=== PATIENT | female | born 1970 | race Caucasian/White ===

== ENCOUNTER 2018-01-10 21:12 | Observation (INO) | payer BC ==
[2018-01-11] MEDS ORDERED: Orphenadrine 100 MG Tab.ER PO STA (00:26)
--- NOTE | 2018-01-11 00:31 | EDM.PDOC ---
ED HPI GENERAL MEDICAL PROBLEM - General Chief Complaint: Back Pain or Injury Stated Complaint: BACK PAIN Time Seen by Provider: 01/10/18 22:10 Source of Information: Reports: Patient, Old Records (ED 01/08/2018) History Limitations: Reports: No Limitations - History of Present Illness INITIAL COMMENTS - FREE TEXT/NARRATIVE: The patient states that she developed low back pain on Thursday morning, 2017. Initially it was just in the lower back, but has since started radiating up her back to between her scapulae and down to her buttocks. Occasionally her feet are tingling, but she denies radicular pain down either lower extremity. No weakness to either lower extremity. She reports that she has been constipated for about a week, but denies incontinence of bowel or bladder. No recent fever. No urinary symptoms. The patient also reports lower abdominal pain. She states that she was seen at the [facility] on , 2017. She states that no tests were done, but that she was prescribed Skelaxin. The patient states that she was then seen in this ED on 01/08/2018. Medical records indicate that the patient underwent x-rays of lumbar spine, which demonstrated mild degenerative changes. She was given 1 mg of IM Dilaudid , and discharged home with a prescription for oxycodone 5 mg po up to QID as needed for severe pain, #15. She was instructed to continue the Skelaxin that had been prescribed to her the day before, and naproxen which she is already prescribed for migraine headaches. She was told that she could also take Tylenol. The patient states that she was then seen at the [facility] ED the following night, 01/09/2018. She states that no tests were done, but that she was given a steroid injection and a Toradol injection, then discharged home with a prescription for Valium. The patient now returns to the ED stating that none of these treatments have helped. The patient's PCP is Chiara Ellison. Back Pain Score (Numeric/FACES): 10 - Related Data Allergies Allergy/AdvReac Type Severity Reaction Status Date / Time morphine AdvReac Hallucinati Verified 01/08/18 03:12 ons Home Meds: Home Meds Naproxen [EC-Naprosyn] 500 mg PO BID PRN 10/14/13 [History] Topiramate [Topamax] 50 mg PO DAILY 03/11/16 [History] Cyclobenzaprine HCl 10 mg PO BEDTIME 01/08/18 [History] SUMAtriptan Succinate [Imitrex] 50 mg PO DAILY PRN 01/08/18 [History] Sertraline [Zoloft] 50 mg PO DAILY 01/08/18 [History] oxyCODONE 5 mg PO QID PRN #15 tab 01/08/18 [Rx] Diazepam [Valium] 10 mg PO Q8H PRN 01/10/18 [History] Docusate Sodium [Colace] 100 mg PO DAILY 01/10/18 [History] oxyCODONE 5 mg PO QID PRN 01/10/18 [History] 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: Neurological History: Reports: Migraines Psychiatric History: Reports: Anxiety, Depression - Infectious Disease History Infectious Disease History: Reports: Chicken Pox - Past Surgical History HEENT Surgical History: Reports: LASIK (bilateral) Female Surgical History: Reports: Section (x 2) Social & Family History - Tobacco Use Smoking Status *Q: Never Smoker - Caffeine Use Caffeine Use: Reports: Coffee, Soda - Alcohol Use Alcohol Use History: Yes Alcohol Use Frequency: Socially - Recreational Drug Use Recreational Drug Use: No - Living Situation & Occupation Living situation: Reports: , with Spouse, with Family (2 kids) 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 ED EXAM,LOWER BACK PAIN/INJURY - Physical Exam Exam: See Below Exam Limited By: No Limitations General Appearance: Alert, WD/WN, Mild Distress (Appears uncomfortable) Eye Exam: Bilateral Eye: EOMI, Normal Inspection Ears: Normal External Exam, Hearing Grossly Normal Nose: Normal Inspection, No Blood Throat/Mouth: Normal Inspection, Normal Lips, Normal Voice, No Airway Compromise Head: Atraumatic, Normocephalic Neck: Normal Inspection, Full Range of Motion Respiratory/Chest: No Respiratory Distress, Lungs Clear, Normal Breath Sounds, No Accessory Muscle Use Cardiovascular: Normal Peripheral Pulses, Regular Rate, Rhythm, No Edema, No Gallop, No JVD, No Murmur, No Rub GI/Abdominal: Normal Bowel Sounds, Soft, No Organomegaly, No Distention, No Abnormal Bruit, No Mass, Tender (Family to the lower abdomen. Minimal tenderness to the upper abdomen.) (Female) Exam: Deferred Rectal (Female) Exam: Deferred Back Exam: Normal Inspection, Full Range of Motion, CVA Tenderness (R), Vertebral Tenderness (thoracic and sacral, not lumbar), Other (Straight leg raise on the left induces back spasm without radiculopathy around 45. Straight leg raise on the left induces back spasm without radiculopathy at 60. The patient is able to flex his spine to approximately 45, and extend the spine to approximately 20. She is able to tilt of the spine bilaterally to about 20. She is able to twist the spine to the right to about 20, to the left to about 10. Unilateral knee bend is normal bilaterally.). No: CVA Tenderness (L), Paraspinal Tenderness Extremities: Normal Inspection, Normal Range of Motion, No Pedal Edema, Normal Capillary Refill Neurological: Alert, No Motor/Sensory Deficits, Oriented x 3 Psychiatric: Normal Affect Skin Exam: Warm, Dry, Intact, Normal Color, No Rash Course - Vital Signs Last Recorded V/S: Last Vital Signs Temp 37.2 C 01/10/18 21:50 Pulse 97 01/10/18 21:50 Resp 20 01/10/18 21:50 BP 126/73 01/10/18 21:50 Pulse Ox 99 01/10/18 21:50 - Orders/Labs/Meds Orders: Active Orders 24 hr Category Date Time Status Lumbar Spine w Cont [CT] Stat Exams 01/10/18 22:59 Taken Sodium Chloride 0.9% [Normal Saline] 1,000 ml Med 01/11/18 01:15 Active IV ASDIRECTED Medication Orders Sodium Chloride (Normal Saline) 1,000 mls @ 150 mls/hr IV ASDIRECTED ESSENCE Last Admin: 01/11/18 01:11 Dose: 150 mls/hr Labs: Laboratory Tests 01/10/18 01/10/18 01/11/18 Range/Units 23:26 23:26 01:00 WBC 8.36 (3.98-10.04) K/mm3 RBC 4.59 (3.98-5.22) M/mm3 Hgb 14.2 (11.2-15.7) gm/L Hct 41.8 (34.1-44.9) % MCV 91.1 (79.4-94.8) fl MCH 30.9 (25.6-32.2) pg MCHC 34.0 (32.2-35.5) g/dl RDW Std Deviation 42.5 (36.4-46.3) fL Plt Count 152 L (182-369) K/mm3 MPV 11.7 (9.4-12.3) fl Neutrophils % (Manual) 92 H (40-60) % Band Neutrophils % 1 (0-10) % Lymphocytes % (Manual) 3 L (20-40) % Atypical Lymphs % 1 % Monocytes % (Manual) 3 (2-10) % Eosinophils % (Manual) 0 L (0.7-5.8) % Basophils % (Manual) 0 L (0.1-1.2) Platelet Estimate Adequate Plt Morphology Comment Normal RBC Morph Comment Normal Sodium 141 (136-145) mEq/L Potassium 3.1 L (3.5-5.1) mEq/L Chloride 104 (98-107) mEq/L Carbon Dioxide 27 (21-32) mEq/L Anion Gap 13.1 (5-15) BUN 12 (7-18) mg/dL Creatinine 0.9 (0.55-1.02) mg/dL Est Cr Clr Drug Dosing 73.90 mL/min Estimated GFR (MDRD) > 60 (>60) mL/min BUN/Creatinine Ratio 13.3 L (14-18) Glucose 126 H (74-106) mg/dL Calcium 8.7 (8.5-10.1) mg/dL Total Bilirubin 2.5 H (0.2-1.0) mg/dL AST 393 H (15-37) U/L ALT 342 H (14-59) U/L Alkaline Phosphatase 534 H (46-116) U/L Total Protein 8.0 (6.4-8.2) g/dl Albumin 4.0 (3.4-5.0) g/dl Globulin 4.0 gm/dL Albumin/Globulin Ratio 1.0 (1-2) Urine Color Yellow (Yellow) Urine Appearance Clear (Clear) Urine pH 8.5 H (5.0-8.0) Ur Specific [place] 1.015 (1.005-1.030) Urine Protein 2+ H (Negative) Urine Glucose (UA) Negative (Negative) Urine Ketones Negative (Negative) Urine Occult Blood Trace-intact H (Negative) Urine Nitrite Negative (Negative) Urine Bilirubin 1+ H (Negative) Urine Urobilinogen 2.0 H (0.2-1.0) Ur Leukocyte Esterase Negative (Negative) Urine RBC 0-5 (0-5) /hpf Urine WBC 0-5 (0-5) /hpf Ur Epithelial Cells 0-5 (0-5) /hpf Urine Bacteria Rare (FEW) /hpf Urine Mucus Not seen (FEW) /hpf Meds: Medications Generic Name Dose Route Start Last Admin Trade Name Freq PRN Reason Stop Dose Admin Sodium Chloride 1,000 mls @ 150 mls/hr 01/11/18 01:15 01/11/18 01:11 Normal Saline IV 150 mls/hr ASDIRECTED ESSENCE Administration Discontinued Medications Generic Name Dose Route Start Last Admin Trade Name Freq PRN Reason Stop Dose Admin Hydromorphone HCl 1 mg 01/11/18 01:03 01/11/18 01:10 Dilaudid IVPUSH 01/11/18 01:04 1 mg ONETIME STA Administration Orphenadrine Citrate 100 mg 01/11/18 00:26 01/11/18 00:31 Norflex PO 01/11/18 00:27 100 mg ONETIME STA Administration Potassium Chloride 40 meq 01/11/18 00:32 01/11/18 01:14 Klor-Con M20 PO 01/11/18 00:33 40 meq ONETIME ONE Administration - Re-Assessments/Exams Free Text/Narrative Re-Assessment/Exam: 01/11/18 00:30 CT scan of the lumbar spine with IV contrast is read by [facility] as " No abscess." 01/11/18 01:55 Test results discussed with the patient and her family. The cause of the patient 's back pain has not yet been identified, although is most likely due to a muscle spasm. Her potassium returned at 3.1, for reasons unclear, and her transaminases and alkaline phosphatase are also substantially elevated. It is unclear if these are in summary related to her back pain, or are coincidental. The patient received Norflex and oral potassium along with IV fluid and IV Dilaudid here in the ED, nevertheless, she is still quite uncomfortable, and I don't feel comfortable sending her home. I'm concerned that we are missing something and that further evaluation, such as a MRI of the area, is needed. I' m recommending admission to the hospital, and the patient agreed. 01/11/18 02:[address] French at 01:55. She agrees to admit the patient. Departure - Departure Time of Disposition: 02:00 Disposition: Refer to Observation Condition: Fair Clinical Impression: Back pain, Hypokalemia, Elevated transaminase level, Elevated alkaline phosphatase level - Discharge Information *PRESCRIPTION DRUG MONITORING PROGRAM REVIEWED*: Yes *COPY OF PRESCRIPTION DRUG MONITORING REPORT IN PATIENT JAZMIN: No Referrals: Chiara Ellison ACCOUNT ASSOCIATE [Primary Care Provider] - Forms: ED Department Discharge - My Orders Last 24 Hours: My Active Orders 01/10/18 22:59 Lumbar Spine w Cont [CT] Stat 01/11/18 01:15 Sodium Chloride 0.9% [Normal Saline] 1,000 ml IV ASDIRECTED - Assessment/Plan Last 24 Hours: My Active Orders 01/10/18 22:59 Lumbar Spine w Cont [CT] Stat 01/11/18 01:15 Sodium Chloride 0.9% [Normal Saline] 1,000 ml IV ASDIRECTED
[2018-01-11] MEDS ORDERED: Potassium Chloride 20 MEQ Tab.ER PO ONE (00:32)
[2018-01-11] MEDS ORDERED: HYDROmorphone 0.5 MG/0.5 ML SYRINGE IVPUSH STA (01:03)
[2018-01-11] MEDS: Sodium Chloride 0.9% 1,000 ML IV SCH ×3 (01:11→17:55)
[2018-01-11] MEDS ORDERED: Ondansetron 4 MG/2 ML SDV IVPUSH PRN (03:19)
[2018-01-11] MEDS ORDERED: Temazepam 7.5 MG Cap PO PRN (03:23)
[2018-01-11] MEDS: traMADol 50 MG Tab PO PRN ×2 (03:25→16:23)
[2018-01-11] MEDS: Ketorolac 15 MG/ML SDV IVPUSH SCH ×2 (03:28→08:51)
[2018-01-11] MEDS: HYDROmorphone 0.5 MG/0.5 ML Syringe IVPUSH PRN ×2 (04:56→09:17)
[2018-01-11] MEDS ORDERED: HYDROmorphone 0.5 MG/0.5 ML SYRINGE IVPUSH ONE (06:06)
[2018-01-11] MEDS ORDERED: Pantoprazole 40 MG in Sodium Chloride 0.9% 100 ML IV ONE (06:12)
[2018-01-11] MEDS ORDERED: fentaNYL 25 MCG/HR Transdermal Patch TRDERM SCH (06:15)
[2018-01-11] MEDS ORDERED: methylPREDNISolone Sodium Succinate 125 MG/2 ML SDV IVPUSH ONE (06:20)
--- NOTE | 2018-01-11 09:48 | PCM.HP ---
H&P History of Present Illness - General Date of Service: 01/11/18 Admit Problem/Dx: Admission Diagnosis/Problem Admission Diagnosis/Problem Back pain Source of Information: Patient, Family, Provider History Limitations: Reports: No Limitations - History of Present Illness Initial Comments - Free Text/Narative: 47 YEAR OLD FEMALE WHO PRESENTED SEVERAL TIMES AT VARIOUS HEALTH CARE FACILITIES PRESENTS WITH ABRUPT ONSET OF BACK PAIN. SHE WILL BE ADMITTED FOR BACK PAIN WORK UP AND INTRACTABLE PAIN. THERE HAS BEEN NO RECENT TRAUMA, FEVER , CHILLS, CHANGE IN HABITS OR SIGNIFICANT ABDOMINAL PAIN. THE PAIN SHOTS DOWN HER LEGS AND OCCASIONALLY UP HER BACK. THE PATIENT WILL BE SCHEDULED FOR AN MRI AND RECEIVE AGGRESSIVE TREATMENT FOR BACK DISCOMFORT THAT HAS SEVERELY LIMITED HER ACTIVITIES. SHE WILL BE ADMITTED OBSERVATION, AND IS A FULL CODE. Onset of Symptoms: Reports: Sudden Symptom Onset Date: 01/06/18 Duration of Symptoms: Reports: Day(s):, Getting Worse Location: Reports: Back Quality: Reports: Same as Previous Episode Severity: Severe Improves with: Reports: Medication Worsens with: Reports: Movement Associated Symptoms: Reports: No Other Symptoms Back Pain Score (Numeric/FACES): 9 - Related Data Allergies/Adverse Reactions: Allergies Allergy/AdvReac Type Severity Reaction Status Date / Time morphine AdvReac Hallucinati Verified 01/08/18 03:12 ons Home Medications: Home Meds Topiramate [Topamax] 50 mg PO DAILY 03/11/16 [History] SUMAtriptan Succinate [Imitrex] 50 mg PO DAILY PRN 01/08/18 [History] Sertraline [Zoloft] 50 mg PO DAILY 01/08/18 [History] Docusate Sodium [Colace] 100 mg PO DAILY 01/10/18 [History] Ketorolac [Toradol] 10 mg PO Q6H PRN #12 tablet 01/12/18 [Rx] fentaNYL [Duragesic] 25 mcg TRDERM Q72H #1 patch 01/12/18 [Rx] predniSONE 20 mg PO DAILY #4 tablet 01/12/18 [Rx] traMADol [Ultram] 50 mg PO Q8H PRN #20 tablet 01/12/18 [Rx] 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: Musculoskeletal History: Reports: Other (See Below) Other Musculoskeletal History: back pain Neurological History: Reports: Migraines Psychiatric History: Reports: Anxiety, Depression Hematologic History: Reports: Iron Deficiency - Infectious Disease History Infectious Disease History: Reports: Chicken Pox - Past Surgical History HEENT Surgical History: Reports: LASIK (bilateral) Female Surgical History: Reports: Section (x 2) Social & Family History - Family History Family Medical History: Noncontributory - Tobacco Use Smoking Status *Q: Never Smoker Second Hand Smoke Exposure: No - Caffeine Use Caffeine Use: Reports: Coffee, Soda Other Caffeine Use: 2 cups/coffee, 1 soda - Recreational Drug Use Recreational Drug Use: No - Living Situation & Occupation Living situation: Reports: , with Spouse, with Family (2 kids) 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&P Review of Systems - Review of Systems: Review Of Systems: See Below General: Reports: Weakness, Decreased Appetite HEENT: Reports: No Symptoms Pulmonary: Reports: No Symptoms Cardiovascular: Reports: No Symptoms Gastrointestinal: Reports: No Symptoms Genitourinary: Reports: No Symptoms Musculoskeletal: Reports: Back Pain, Muscle Pain Skin: Reports: No Symptoms Psychiatric: Reports: No Symptoms Neurological: Reports: No Symptoms Hematologic/Lymphatic: Reports: No Symptoms Immunologic: Reports: No Symptoms Exam - Exam Exam: See Below - Vital Signs Vital Signs: Last Vital Signs Temp 37.3 C 01/11/18 08:54 Pulse 102 H 01/11/18 08:54 Resp 16 01/11/18 08:54 BP 118/65 01/11/18 08:54 Pulse Ox 96 01/11/18 08:54 Weight: 61.235 kg - Exam Quality Assessment: Supplemental Oxygen, DVT Prophylaxis General: Alert, Oriented, Cooperative, Mild Distress HEENT: Conjunctiva Clear, Nares Patent, Normal Nasal Septum, Pupils Equal, Pupils Reactive Neck: Trachea Midline Lungs: Clear to Auscultation, Normal Respiratory Effort Cardiovascular: Regular Rate, Regular Rhythm GI/Abdominal Exam: Normal Bowel Sounds, Soft, Non-Tender, No Distention (Female) Exam: Deferred Rectal (Female) Exam: Deferred Back Exam: Normal Inspection, Decreased Range of Motion, Muscle Spasm, Paraspinal Tenderness Extremities: Normal Inspection, No Pedal Edema, Limited Range of Motion (hips, bilaterally) Skin: Warm Neurological: Cranial Nerves Intact, Normal Speech Neuro Extensive - Mental Status: Alert, Oriented x3 Neuro Extensive - Motor, Sensory, Reflexes: CN II-XII Intact Psychiatric: Alert - Patient Data Lab Results Last 24 hrs: Laboratory Results - last 24 hr 01/10/18 01/10/18 01/11/18 Range/Units 23:26 23:26 01:00 WBC 8.36 (3.98-10.04) K/mm3 RBC 4.59 (3.98-5.22) M/mm3 Hgb 14.2 (11.2-15.7) gm/L Hct 41.8 (34.1-44.9) % MCV 91.1 (79.4-94.8) fl MCH 30.9 (25.6-32.2) pg MCHC 34.0 (32.2-35.5) g/dl RDW Std Deviation 42.5 (36.4-46.3) fL Plt Count 152 L (182-369) K/mm3 MPV 11.7 (9.4-12.3) fl Neutrophils % (Manual) 92 H (40-60) % Band Neutrophils % 1 (0-10) % Lymphocytes % (Manual) 3 L (20-40) % Atypical Lymphs % 1 % Monocytes % (Manual) 3 (2-10) % Eosinophils % (Manual) 0 L (0.7-5.8) % Basophils % (Manual) 0 L (0.1-1.2) Platelet Estimate Adequate Plt Morphology Comment Normal RBC Morph Comment Normal Sodium 141 (136-145) mEq/L Potassium 3.1 L (3.5-5.1) mEq/L Chloride 104 (98-107) mEq/L Carbon Dioxide 27 (21-32) mEq/L Anion Gap 13.1 (5-15) BUN 12 (7-18) mg/dL Creatinine 0.9 (0.55-1.02) mg/dL Est Cr Clr Drug Dosing 73.90 mL/min Estimated GFR (MDRD) > 60 (>60) mL/min BUN/Creatinine Ratio 13.3 L (14-18) Glucose 126 H (74-106) mg/dL Calcium 8.7 (8.5-10.1) mg/dL Total Bilirubin 2.5 H (0.2-1.0) mg/dL AST 393 H (15-37) U/L ALT 342 H (14-59) U/L Alkaline Phosphatase 534 H (46-116) U/L Total Protein 8.0 (6.4-8.2) g/dl Albumin 4.0 (3.4-5.0) g/dl Globulin 4.0 gm/dL Albumin/Globulin Ratio 1.0 (1-2) Urine Color Yellow (Yellow) Urine Appearance Clear (Clear) Urine pH 8.5 H (5.0-8.0) Ur Specific [place] 1.015 (1.005-1.030) Urine Protein 2+ H (Negative) Urine Glucose (UA) Negative (Negative) Urine Ketones Negative (Negative) Urine Occult Blood Trace-intact H (Negative) Urine Nitrite Negative (Negative) Urine Bilirubin 1+ H (Negative) Urine Urobilinogen 2.0 H (0.2-1.0) Ur Leukocyte Esterase Negative (Negative) Urine RBC 0-5 (0-5) /hpf Urine WBC 0-5 (0-5) /hpf Ur Epithelial Cells 0-5 (0-5) /hpf Urine Bacteria Rare (FEW) /hpf Urine Mucus Not seen (FEW) /hpf Result Diagrams: 01/10/18 23:26 01/11/18 18:15 Problem List Initiated/Reviewed/Updated: Yes Orders Last 24hrs: Active Orders 24 hr Category Date Time Status Admission Status [Patient Status] [ADT] Routine ADT 01/11/18 02:39 Active Full Liquid Diet [DIET] Diet 01/11/18 Breakfast Active Lumbar Spine w Cont [CT] Stat Exams 01/10/18 22:59 Taken HYDROmorphone [Dilaudid] Med 01/11/18 03:18 Active 0.5 mg IVPUSH Q4H PRN Ketorolac [Toradol] Med 01/11/18 03:30 Active 15 mg IVPUSH Q6H Ondansetron [Zofran] Med 01/11/18 03:19 Active 4 mg IVPUSH Q8H PRN Remove Patch Med 01/14/18 06:15 Active 1 ea TRDERM Q3D Sodium Chloride 0.9% [Normal Saline] 1,000 ml Med 01/11/18 01:15 Active IV ASDIRECTED Temazepam [Restoril] Med 01/11/18 03:23 Active 7.5 mg PO BEDTIME PRN fentaNYL [Duragesic] Med 01/11/18 06:15 Active 25 mcg TRDERM Q72H traMADol [Ultram] Med 01/11/18 03:17 Active 50 mg PO Q8H PRN K Pad [Heat Therapy] [OM.PC] Routine Oth 01/11/18 05:22 Ordered Resuscitation Status Routine Resus Stat 01/11/18 03:13 Ordered Medication Orders Fentanyl (Duragesic) 25 mcg TRDERM Q72H [facility] Last Admin: 01/11/18 06:20 Dose: 25 mcg Hydromorphone HCl (Dilaudid) 0.5 mg IVPUSH Q4H PRN PRN Reason: Pain Last Admin: 01/11/18 09:17 Dose: 0.5 mg Admin: 01/11/18 04:56 Dose: 0.5 mg Sodium Chloride (Normal Saline) 1,000 mls @ 150 mls/hr IV ASDIRECTED [facility] Last Admin: 01/11/18 01:11 Dose: 150 mls/hr Ketorolac Tromethamine (Toradol) 15 mg IVPUSH Q6H [facility] Last Admin: 01/11/18 08:51 Dose: 15 mg Admin: 01/11/18 03:28 Dose: 15 mg Miscellaneous Information (Remove Patch) 1 ea TRDERM Q3D [facility] Ondansetron HCl (Zofran) 4 mg IVPUSH Q8H PRN PRN Reason: Nausea Temazepam (Restoril) 7.5 mg PO BEDTIME PRN PRN Reason: Insomnia Tramadol HCl (Ultram) 50 mg PO Q8H PRN PRN Reason: Pain Last Admin: 01/11/18 03:25 Dose: 50 mg Assessment/Plan Comment:: Impression: Intractable back pain, severe muscle spasms Chronic Anxiety Depression Migraine Plan: IVF Home meds Daily Labs IV Steroids IV Narcotics IV NSAIDS Transdermal narcotic Consult PT/OT
[2018-01-11] MEDS ORDERED: oxyCODONE 5 MG Tab PO PRN (09:51)
[2018-01-11] MEDS ORDERED: Ketorolac 15 MG/ML SDV IVPUSH ONE (10:15)
[2018-01-11] MEDS: Enoxaparin 40 MG/0.4 ML Syringe SUBCUT SCH (10:40)
--- NOTE | 2018-01-11 10:49 | CT ---
CT lumbar spine Technique: Multiple axial sections were obtained from the top of T12 inferiorly to the L5-S1 disc. Reconstructed coronal and sagittal images were reviewed. Comparison: No prior CT lumbar spine study, previous lumbar spine plain film exam of 01/08/18 is available. Findings: Osteophytes are noted off the superior and inferior endplates at L3. Detached osteophyte compatible with incidental limbus type vertebra seen off the anterior superior endplate of L4. Minimal vacuum phenomena seen within the L4-L5 disc. No fracture is seen. No central canal stenosis or neural foraminal stenosis is seen. No focal fluid collections are seen to indicate abscess. Impression: 1. Slight degenerative change as noted above. 2. Nothing acute is appreciated. Diagnostic code #2 I agree with preliminary report issued by [facility] ([facility] report finalized on 01/11/18, 1:13 AM Central Time)
[2018-01-11] MEDS: methylPREDNISolone Sodium Succinate 125 MG/2 ML SDV IVPUSH SCH ×2 (12:46→19:37)
[2018-01-11] MEDS ORDERED: Gadobenate Dimeglumine 529 MG/ML 15 ML SDV IVPUSH ONE (15:14)
[2018-01-11] MEDS ORDERED: Sodium Chloride 0.9% 10 ML Syringe FLUSH SCH (15:15)
[2018-01-11] MEDS: Ketorolac 30 MG/ML SDV IVPUSH SCH ×2 (16:23→21:19)
--- NOTE | 2018-01-11 18:49 | MR ---
MRI lumbar spine Technique: MRI lumbar spine Technique: T1, T2 and T1 fat suppressed post gadolinium axial images were obtained from above the L1-2 disc inferiorly through the L5-S1 disc. T1, T2, fat suppressed inversion recovery and post gadolinium T1 fat suppressed sagittal images were obtained through the lumbar spine. Comparison: Previous CT lumbar spine study of 01/10/18. Findings: T11-T12: Posterior disc is preserved. No central canal stenosis or neural foraminal stenosis is seen. T12-L1: Posterior disc is preserved. No central canal stenosis or neural foraminal stenosis is seen. L1-2: Posterior disc is preserved. No central canal stenosis or neural foraminal stenosis is seen. L2-3: Slight disc space narrowing is noted. Posterior disc is preserved. Degenerative dehydration change is present. No central canal stenosis or neural foraminal stenosis is seen. L3-4: Mild posterior disc space narrowing is seen. Minimal circumferential disc bulge is present. Posterior disc maintains a slightly concave margin. Mild degenerative apophyseal change is noted. No central canal stenosis or neural foraminal stenosis is seen. Degenerative dehydration change is noted within the disc. L4-5: Minimal circumferential disc bulge is seen. Posterior disc maintains a minimally concave margin. No central canal stenosis is seen. Neural foramina are patent. Degenerative dehydration change is noted within the disc. L5-S1: Minimal circumferential disc bulge is seen. No central canal stenosis or neural foraminal stenosis is seen. Conus medullaris and cauda equina shows no abnormal signal or mass. No abnormal enhancement is seen. Impression: 1. Minimal degenerative change as noted above. No focal disc herniation, central canal stenosis or neural foraminal stenosis is seen. Diagnostic code #2
[2018-01-11] MEDS ORDERED: Famotidine 20 MG Tab PO SCH (21:00)
[2018-01-12] MEDS: methylPREDNISolone Sodium Succinate 125 MG/2 ML SDV IVPUSH SCH ×2 (00:46→06:42)
[2018-01-12] MEDS: Ketorolac 30 MG/ML SDV IVPUSH SCH ×2 (04:38→09:41)
[2018-01-12 04:45] VITALS: BP 131/76
[2018-01-12] MEDS ORDERED: Sertraline 50 MG Tab PO SCH (09:00)
[2018-01-12] MEDS ORDERED: Docusate Sodium 100 MG Cap PO SCH (09:00)
[2018-01-12] MEDS ORDERED: Topiramate 25 MG Tab PO SCH (09:00)
[2018-01-12] MEDS: Enoxaparin 40 MG/0.4 ML Syringe SUBCUT SCH (09:41)
[2018-01-12] MEDS ORDERED: Ketorolac 10 MG Tab PO PRN (11:03)
--- NOTE | 2018-01-12 11:03 | PCM.DCSUM1 ---
Discharge Summary - Hospital Course Free Text/Narrative:: The patient improved drastically with ATC toradol, a fentanyl patch and solumedrol. The patient also had a PT/OT consults, she will require additional therapy at [place]. She was continued on toradol, prednisone, tramadol, and a fentanyl patch. An MRI of the lumbar spine was performed which was unremarkable. She is expected to follow up with her PCP at [place]. HPI Initial Comments: 47 YEAR OLD FEMALE WHO PRESENTED SEVERAL TIMES AT VARIOUS HEALTH CARE FACILITIES PRESENTS WITH ABRUPT ONSET OF BACK PAIN. SHE WILL BE ADMITTED FOR BACK PAIN WORK UP AND INTRACTABLE PAIN. THERE HAS BEEN NO RECENT TRAUMA, FEVER , CHILLS, CHANGE IN HABITS OR SIGNIFICANT ABDOMINAL PAIN. THE PAIN SHOTS DOWN HER LEGS AND OCCASIONALLY UP HER BACK. THE PATIENT WILL BE SCHEDULED FOR AN MRI AND RECEIVE AGGRESSIVE TREATMENT FOR BACK DISCOMFORT THAT HAS SEVERELY LIMITED HER ACTIVITIES. SHE WILL BE ADMITTED OBSERVATION, AND IS A FULL CODE. Diagnosis: Stroke: No - Discharge Data Discharge Date: 01/12/18 Discharge Disposition: Home, Self-Care 01 Condition: Good - Patient Summary/Data Consults: Consultations 01/12/18 09:00 Consult to Occupational Therapy [OT Evaluation and Treatment] [CONS] Routine Consult to Physical Therapy [PT Evaluation and Treatment] [CONS] Routine - Patient Instructions Diet: Usual Diet as Tolerated Activity: As Tolerated Driving: Do Not Drive (until she is no longer on a fentanyl patch) Showering/Bathing: May Shower Notify Provider of: Fever, Increased Pain, Nausea and/or Vomiting - Discharge Plan *PRESCRIPTION DRUG MONITORING PROGRAM REVIEWED*: Yes *COPY OF PRESCRIPTION DRUG MONITORING REPORT IN PATIENT JAZMIN: No Prescriptions/Med Rec: fentaNYL [Duragesic] 25 mcg TRDERM Q72H #1 patch Ketorolac [Toradol] 10 mg PO Q6H PRN #12 tablet PRN Reason: Pain (Moderate 4-6) predniSONE 20 mg PO DAILY #4 tablet traMADol [Ultram] 50 mg PO Q8H PRN #20 tablet PRN Reason: Pain Home Medications: Home Meds Topiramate [Topamax] 50 mg PO DAILY 03/11/16 [History] SUMAtriptan Succinate [Imitrex] 50 mg PO DAILY PRN 01/08/18 [History] Sertraline [Zoloft] 50 mg PO DAILY 01/08/18 [History] Docusate Sodium [Colace] 100 mg PO DAILY 01/10/18 [History] Ketorolac [Toradol] 10 mg PO Q6H PRN #12 tablet 01/12/18 [Rx] fentaNYL [Duragesic] 25 mcg TRDERM Q72H #1 patch 01/12/18 [Rx] predniSONE 20 mg PO DAILY #4 tablet 01/12/18 [Rx] traMADol [Ultram] 50 mg PO Q8H PRN #20 tablet 01/12/18 [Rx] Other Amb Orders: COMPREHENSIVE METABOLIC PN,CMP [CHEM] Time Frame: 01/15/18, [facility], Location: [facility] Patient Handouts: Liver Function Tests, Back Pain, Adult, Acute Pain, Adult Referrals: Chiara Ellison NP [Primary Care Provider] - 01/19/18 11:00 am (Please follow-up with your primary care provider, Dr. Chiara Ellison, on ThursdayJanuary 19 at 11 :00am. ) - Discharge Summary/Plan Comment DC Time >30 min.: No Discharge Summary/Plan Comment: Impression: Intractable back pain, severe muscle spasms Chronic Anxiety Depression Migraine Plan: IVF Home meds Daily Labs IV Steroids IV Narcotics IV NSAIDS Transdermal narcotic Consult PT/OT - General Info Date of Service: 01/11/18 Functional Status: Reports: Pain Controlled, Tolerating Diet, Ambulating - Review of Systems General: Reports: No Symptoms HEENT: Reports: No Symptoms Pulmonary: Reports: No Symptoms Cardiovascular: Reports: No Symptoms Gastrointestinal: Reports: No Symptoms Genitourinary: Reports: No Symptoms Musculoskeletal: Reports: No Symptoms Skin: Reports: No Symptoms Neurological: Reports: No Symptoms Psychiatric: Reports: No Symptoms - Patient Data Vitals - Most Recent: Last Vital Signs Temp 36.5 C 01/12/18 04:42 Pulse 63 01/12/18 04:42 Resp 16 01/12/18 04:42 BP 131/76 01/12/18 04:42 Pulse Ox 92 L 01/12/18 04:42 Weight - Most Recent: 61.235 kg I&O - Last 24 hours: Intake & Output 01/11/18 01/12/18 01/12/18 22:59 06:59 14:59 Intake Total 2055 1700 Balance 2055 1700 Lab Results - Last 24 hrs: Laboratory Results - last 24 hr 01/11/18 Range/Units 18:15 Sodium 140 (136-145) mEq/L Potassium 3.7 (3.5-5.1) mEq/L Chloride 108 H (98-107) mEq/L Carbon Dioxide 20 L (21-32) mEq/L Anion Gap 15.7 H (5-15) BUN 7 (7-18) mg/dL Creatinine 0.9 (0.55-1.02) mg/dL Est Cr Clr Drug Dosing 73.90 mL/min Estimated GFR (MDRD) > 60 (>60) mL/min BUN/Creatinine Ratio 7.8 L (14-18) Glucose 225 H (74-106) mg/dL Calcium 7.9 L (8.5-10.1) mg/dL Med Orders - Current: Current Medications Docusate Sodium (Colace) 100 mg PO DAILY [facility] Last Admin: 01/12/18 09:41 Dose: 100 mg Enoxaparin Sodium (Lovenox) 40 mg SUBCUT Q24H [facility] Last Admin: 01/12/18 09:41 Dose: 40 mg Famotidine (Pepcid) 20 mg PO BEDTIME [facility] Last Admin: 01/11/18 21:19 Dose: 20 mg Fentanyl (Duragesic) 25 mcg TRDERM Q72H [facility] Last Admin: 01/11/18 06:20 Dose: 25 mcg Hydromorphone HCl (Dilaudid) 0.5 mg IVPUSH Q4H PRN PRN Reason: Pain Last Admin: 01/11/18 09:17 Dose: 0.5 mg Ketorolac Tromethamine (Toradol) 30 mg IVPUSH Q6H [facility] Last Admin: 01/12/18 09:41 Dose: 30 mg Methylprednisolone Sodium Succinate (Solu-Medrol) 125 mg IVPUSH Q6H [facility] Last Admin: 01/12/18 06:42 Dose: 125 mg Miscellaneous Information (Remove Patch) 1 ea TRDERM Q3D [facility] Ondansetron HCl (Zofran) 4 mg IVPUSH Q8H PRN PRN Reason: Nausea Oxycodone HCl (Oxycodone) 5 mg PO QID PRN PRN Reason: Pain (moderate 4-6) Last Admin: 01/11/18 12:19 Dose: 5 mg Sertraline HCl (Zoloft) 50 mg PO DAILY [facility] Last Admin: 01/12/18 09:40 Dose: 50 mg Temazepam (Restoril) 7.5 mg PO BEDTIME PRN PRN Reason: Insomnia Topiramate (Topamax) 50 mg PO DAILY [facility] Last Admin: 01/12/18 09:41 Dose: 50 mg Tramadol HCl (Ultram) 50 mg PO Q8H PRN PRN Reason: Pain Last Admin: 01/11/18 16:23 Dose: 50 mg Discontinued Medications Gadobenate Dimeglumine (Multihance) 12 ml IVPUSH ONETIME ONE Stop: 01/11/18 15:15 Last Admin: 01/11/18 15:59 Dose: 12 ml Hydromorphone HCl (Dilaudid) 1 mg IVPUSH ONETIME STA Stop: 01/11/18 01:04 Last Admin: 01/11/18 01:10 Dose: 1 mg Hydromorphone HCl (Dilaudid) 1 mg IVPUSH ONETIME ONE Stop: 01/11/18 06:07 Last Admin: 01/11/18 06:17 Dose: 1 mg Sodium Chloride (Normal Saline) 1,000 mls @ 150 mls/hr IV ASDIRECTED [facility] Last Admin: 01/11/18 17:55 Dose: 150 mls/hr Pantoprazole Sodium 40 mg/ (Sodium Chloride) 100 mls @ 200 mls/hr IV ONETIME ONE Stop: 01/11/18 06:41 Last Admin: 01/11/18 06:41 Dose: 200 mls/hr Ketorolac Tromethamine (Toradol) 15 mg IVPUSH Q6H [facility] Last Admin: 01/11/18 08:51 Dose: 15 mg Ketorolac Tromethamine (Toradol) 15 mg IVPUSH ONETIME ONE Stop: 01/11/18 10:16 Last Admin: 01/11/18 10:39 Dose: 15 mg Methylprednisolone Sodium Succinate (Solu-Medrol) 125 mg IVPUSH ONETIME ONE Stop: 01/11/18 06:21 Last Admin: 01/11/18 07:22 Dose: 125 mg Orphenadrine Citrate (Norflex) 100 mg PO ONETIME STA Stop: 01/11/18 00:27 Last Admin: 01/11/18 00:31 Dose: 100 mg Potassium Chloride (Klor-Con M20) 40 meq PO ONETIME ONE Stop: 01/11/18 00:33 Last Admin: 01/11/18 01:14 Dose: 40 meq Sodium Chloride (Saline Flush) 10 ml FLUSH ASDIRECTED [facility] Stop: 01/11/18 20:00 Last Admin: 01/11/18 15:59 Dose: 10 ml - Exam General: Reports: Alert, Oriented, Cooperative, No Acute Distress HEENT: Reports: Pupils Equal, Pupils Reactive, EOMI Neck: Reports: Trachea Midline, No JVD Lungs: Reports: Clear to Auscultation, Normal Respiratory Effort Cardiovascular: Reports: Regular Rate, Regular Rhythm GI/Abdominal Exam: Normal Bowel Sounds, Soft, Non-Tender, No Organomegaly, No Distention (Female) Exam: Deferred Rectal (Female) Exam: Deferred Back Exam: Reports: Normal Inspection Extremities: Normal Inspection, Normal Range of Motion, Non-Tender, No Pedal Edema, Normal Capillary Refill Skin: Reports: Warm Neurological: Reports: No New Focal Deficit, Normal Gait, Normal Speech Psy/Mental Status: Reports: Alert, Normal Affect, Normal Mood
[2018-01-12] MEDS ORDERED: predniSONE 20 MG Tab PO SCH (11:15)
== END 2018-01-12 12:53 | disposition home or self-care (01) ==
LOC: JD.ED 21:12 → JD.MS 01-11 02:38
PROVIDERS: ADMIT Internal Medicine Cardiovascular Disease; ATTEND Internal Medicine Cardiovascular Disease
DX: M51.26 Other intervertebral disc displacement, lumbar region (principal); M51.36 Other intervertebral disc degeneration, lumbar region; D50.9 Iron deficiency anemia, unspecified; F41.9 Anxiety disorder, unspecified; F32.9 Major depressive disorder, single episode, unspecified; Z79.899 Other long term (current) drug therapy; Z88.5 Allergy status to narcotic agent
CPT/HCPCS: 36415; 72132; 72158; 80048; 80053; 81001; 85007; 85027; 96361; 96365; 96372; 96375; 96376; 97161; 97165; 99285; A9270; A9577; C9113; G0378; J1170; J1650; J1885; J2930; J7030; J7040; J7050; 96374

== ENCOUNTER 2018-01-13 18:27 | Emergency (ER) | payer BC ==
[2018-01-13 18:46] VITALS: BP 158/81
[2018-01-13] MEDS ORDERED: HYDROmorphone 0.5 MG/0.5 ML SYRINGE IVPUSH ONE ×2 (19:10→22:24)
[2018-01-13] MEDS ORDERED: Sodium Chloride 0.9% 1,000 ML IV SCH (19:15)
[2018-01-13] MEDS: Sodium Chloride 0.9% 10 ML Syringe FLUSH PRN ×2 (19:31→21:05)
--- NOTE | 2018-01-13 19:44 | EDM.PDOC ---
ED HPI GENERAL MEDICAL PROBLEM - General Chief Complaint: Respiratory Problem Stated Complaint: LEG PAIN Time Seen by Provider: 01/13/18 18:55 Source of Information: Reports: Patient, Family History Limitations: Reports: No Limitations - History of Present Illness INITIAL COMMENTS - FREE TEXT/NARRATIVE: The patient presents with low back pain, shortness of breath, and left leg pain. When my nurse brought the patient back, her oxygen saturations were 70% and she was put on oxygen and that did bring it up into the 90s. This all started for her on 01/06/18. She woke up with low back pain. She had no injury and has no real history of back troubles. She exercises regularly. She went to the walk in clinic at [facility] in [place] and no studies were done but she was given skelaxin. She came to our ER on 01/08/18 and was seen by one of our ER doctors and an x-ray was done and it was relatively normal. She was given some oxycodone and told to continue the muscle relaxer. She was then seen at [facility] in [place] and no tests were done but she was given a steroid injection and toradol and given a prescription for valium. She was then seen at our ER again on 01/11/[address] scan of her back was done and it showed nothing acute. Her liver enzymes were also elevated. She was admitted to our hospitalist service and an MRI was done of her lumbar spine and it showed minimal degenerative changes. She was discharged home and PT was set up for a couple days. She was discharged on the and when she got home she developed shortness of breath and that has gotten progressively worse with tightness in her chest. She also has a cough and a fever when she arrived to the ER. She does have some pain to the outer left leg with no edema. She has no history of DVT or PE. She still has the back pain and it is also in her pelvis. She has no cardiac history. She does not smoke. She does have some abdominal bloating but no nausea or vomiting. She has no lung problems like asthma or COPD. Onset: Gradual Duration: Week(s): Location: Reports: Chest, Abdomen, Back, Lower Extremity, Left Quality: Reports: Sharp Severity: Severe Improves with: Reports: Immobilization Worsens with: Reports: Movement Associated Symptoms: Reports: Chest Pain, Cough, Fever/Chills, Nausea/Vomiting, Shortness of Breath. Denies: Headaches Left Lower Leg Pain Score (Numeric/FACES): 2 - Related Data Allergies Allergy/AdvReac Type Severity Reaction Status Date / Time morphine AdvReac Hallucinati Verified 01/13/18 18:46 ons Home Meds: Home Meds Topiramate [Topamax] 50 mg PO DAILY 03/11/16 [History] SUMAtriptan Succinate [Imitrex] 50 mg PO DAILY PRN 01/08/18 [History] Sertraline [Zoloft] 50 mg PO DAILY 01/08/18 [History] Docusate Sodium [Colace] 100 mg PO DAILY 01/10/18 [History] Ketorolac [Toradol] 10 mg PO Q6H PRN #12 tablet 01/12/18 [Rx] fentaNYL [Duragesic] 25 mcg TRDERM Q72H #1 patch 01/12/18 [Rx] predniSONE 20 mg PO DAILY #4 tablet 01/12/18 [Rx] traMADol [Ultram] 50 mg PO Q8H PRN #20 tablet 01/12/18 [Rx] Ferrous Sulfate [Iron] 1 tab PO DAILY 01/13/18 [History] 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: Musculoskeletal History: Reports: Other (See Below) Other Musculoskeletal History: back pain Neurological History: Reports: Migraines Psychiatric History: Reports: Anxiety, Depression Hematologic History: Reports: Iron Deficiency - Infectious Disease History Infectious Disease History: Reports: Chicken Pox - Past Surgical History HEENT Surgical History: Reports: LASIK Female Surgical History: Reports: Section Social & Family History - Family History Family Medical History: Noncontributory - Tobacco Use Smoking Status *Q: Never Smoker - Caffeine Use Caffeine Use: Reports: Coffee, Soda Other Caffeine Use: 2 cups/coffee, 1 soda - Recreational Drug Use Recreational Drug Use: No - Living Situation & Occupation Living situation: Reports: , with Spouse, with Family (2 kids) 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 Denies: Nausea, Vomiting Musculoskeletal: Reports: Other (Left leg pain) ED EXAM, GENERAL - Physical Exam Exam: See Below Exam Limited By: No Limitations General Appearance: Alert, No Apparent Distress Ears: Normal External Exam Nose: Normal Inspection Head: Atraumatic, Normocephalic Neck: Normal Inspection Respiratory/Chest: Respiratory Distress (mild), Decreased Breath Sounds Cardiovascular: No Edema, No Murmur, Tachycardia GI/Abdominal: Soft, Non-Tender, No Organomegaly, No Mass, Other (Mild bloating) Back Exam: Other (No pain upon palpation but her back does hurt when she had to move for my exam) Extremities: Other (Mild pain upon palpation to the left lateral lower leg but no visible edema) Neurological: Alert, Oriented, No Motor/Sensory Deficits EKG INTERPRETATION EKG Date: 01/13/18 Time: 18:56 Rhythm: Other (sinus tachycardia) Rate (Beats/Min): 101 [place]: Normal P-Wave: Present QRS: Normal ST-T: Normal QT: Normal Course - Vital Signs Last Recorded V/S: Last Vital Signs Temp 101.6 F H 01/13/18 21:23 Pulse 103 H 01/13/18 18:37 Resp 26 H 01/13/18 18:37 BP 158/81 H 01/13/18 18:37 Pulse Ox 70 L 01/13/18 18:37 - Orders/Labs/Meds Orders: Active Orders 24 hr Category Date Time Status Cardiac Monitoring [RC] . DIRECTED Care 01/13/18 19:04 Active EKG 12 Lead [EKG Documentation Completion] [RC] STAT Care 01/13/18 18:52 Active Peripheral IV Care [RC] . DIRECTED Care 01/13/18 19:06 Active RT Aerosol Therapy [RC] ASDIRECTED Care 01/13/18 19:46 Active Ang Abdomen Aorta w Bi Runoff [CT] Stat Exams 01/13/18 19:09 Taken Ang Chest [CT] Stat Exams 01/13/18 19:06 Taken VL Duplex Lwr Ext Veins Ltd Lt [US] Stat Exams 01/13/18 19:12 Taken Sodium Chloride 0.9% [Normal Saline] 1,000 ml Med 01/13/18 19:15 Active IV ASDIRECTED Sodium Chloride 0.9% [Saline Flush] Med 01/13/18 19:04 Active 10 ml FLUSH ASDIRECTED PRN Vancomycin [Vancocin] 1.5 gm Med 01/13/18 22:04 Active Sodium Chloride 0.9% [Normal Saline] 250 ml IV ONETIME BiPAP [RESPCARE] Routine Oth 01/13/18 21:26 Active Peripheral IV Insertion Adult [OM.PC] Stat Oth 01/13/18 19:04 Ordered Medication Orders Sodium Chloride (Normal Saline) 1,000 mls @ 125 mls/hr IV ASDIRECTED ESSENCE Last Admin: 01/13/18 19:48 Dose: 125 mls/hr Vancomycin HCl 1.5 gm/ Sodium (Chloride) 250 mls @ 250 mls/hr IV ONETIME ONE Stop: 01/13/18 23:03 Sodium Chloride (Saline Flush) 10 ml FLUSH ASDIRECTED PRN PRN Reason: Keep Vein Open Last Admin: 01/13/18 21:05 Dose: 10 ml Admin: 01/13/18 19:31 Dose: 10 ml Labs: Laboratory Tests 01/13/18 01/13/18 01/13/18 Range/Units 19:52 19:52 19:52 WBC 9.29 (3.98-10.04) K/mm3 RBC 3.40 L (3.98-5.22) M/mm3 Hgb 10.4 L (11.2-15.7) gm/L Hct 31.5 L (34.1-44.9) % MCV 92.6 (79.4-94.8) fl MCH 30.6 (25.6-32.2) pg MCHC 33.0 (32.2-35.5) g/dl RDW Std Deviation 44.0 (36.4-46.3) fL Plt Count 155 L (182-369) K/mm3 MPV 11.1 (9.4-12.3) fl Neut % (Auto) 76.6 H (34.0-71.1) % Lymph % (Auto) 12.2 L (19.3-51.7) % Kemper % (Auto) 9.9 (4.7-12.5) % Eos % (Auto) 0 L (0.7-5.8) Baso % (Auto) 0.1 (0.1-1.2) % Neut # (Auto) 7.12 H (1.56-6.13) K/mm3 Lymph # (Auto) 1.13 L (1.18-3.74) K/mm3 Kemper # (Auto) 0.92 H (0.24-0.36) K/mm3 Eos # (Auto) 0.00 L (0.04-0.36) K/mm3 Baso # (Auto) 0.01 (0.01-0.08) K/mm3 Manual Slide Review Normal smear PT 11.3 (9.5-12.1) SECONDS INR 1.04 APTT 29 (24-31) SECONDS D-Dimer, Quantitative 2.52 H (0.19-0.50) mg/L Puncture Site ABG pH (7.35-7.45) ABG pCO2 (35.0-45.0) mmHg ABG pO2 (80.0-100.0) mmHg ABG HCO3 (22.0-26.0) meq/L ABG O2 Saturation (96.0-97.0) % ABG Base Excess (-2-2.0) James Test A-a Gradient mmHg O2 Delivery Device Oxygen Flow Rate FiO2 (21.00-100.00) % Sodium 135 L (136-145) mEq/L Potassium 3.1 L (3.5-5.1) mEq/L Chloride 101 (98-107) mEq/L Carbon Dioxide 24 (21-32) mEq/L Anion Gap 13.1 (5-15) BUN 14 (7-18) mg/dL Creatinine 0.9 (0.55-1.02) mg/dL Est Cr Clr Drug Dosing 73.90 mL/min Estimated GFR (MDRD) > 60 (>60) mL/min BUN/Creatinine Ratio 15.6 (14-18) Glucose 116 H (74-106) mg/dL Lactic Acid (0.4-2.0) mmol/L Calcium 7.4 L (8.5-10.1) mg/dL Total Bilirubin 0.6 (0.2-1.0) mg/dL AST 278 H (15-37) U/L ALT 379 H (14-59) U/L Alkaline Phosphatase 352 H (46-116) U/L Troponin I 0.902 H* (0.00-0.056) ng/mL C-Reactive Protein 21.4 H* (<1.0) mg/dL NT-Pro-B Natriuret Pep (0-125) pg/mL Total Protein 6.0 L (6.4-8.2) g/dl Albumin 2.6 L (3.4-5.0) g/dl Globulin 3.4 gm/dL Albumin/Globulin Ratio 0.8 L (1-2) 01/13/18 01/13/18 01/13/18 Range/Units 19:52 20:14 20:15 WBC (3.98-10.04) K/mm3 RBC (3.98-5.22) M/mm3 Hgb (11.2-15.7) gm/L Hct (34.1-44.9) % MCV (79.4-94.8) fl MCH (25.6-32.2) pg MCHC (32.2-35.5) g/dl RDW Std Deviation (36.4-46.3) fL Plt Count (182-369) K/mm3 MPV (9.4-12.3) fl Neut % (Auto) (34.0-71.1) % Lymph % (Auto) (19.3-51.7) % Kemper % (Auto) (4.7-12.5) % Eos % (Auto) (0.7-5.8) Baso % (Auto) (0.1-1.2) % Neut # (Auto) (1.56-6.13) K/mm3 Lymph # (Auto) (1.18-3.74) K/mm3 Kemper # (Auto) (0.24-0.36) K/mm3 Eos # (Auto) (0.04-0.36) K/mm3 Baso # (Auto) (0.01-0.08) K/mm3 Manual Slide Review PT (9.5-12.1) SECONDS INR APTT (24-31) SECONDS D-Dimer, Quantitative (0.19-0.50) mg/L Puncture Site Rt radial ABG pH 7.46 H (7.35-7.45) ABG pCO2 30.3 L (35.0-45.0) mmHg ABG pO2 65.0 L (80.0-100.0) mmHg ABG HCO3 21.4 L (22.0-26.0) meq/L ABG O2 Saturation 90.8 L (96.0-97.0) % ABG Base Excess -1.3 (-2-2.0) James Test Positive A-a Gradient 128 mmHg O2 Delivery Device Nasal cannula Oxygen Flow Rate 4.0 FiO2 36.00 (21.00-100.00) % Sodium (136-145) mEq/L Potassium (3.5-5.1) mEq/L Chloride (98-107) mEq/L Carbon Dioxide (21-32) mEq/L Anion Gap (5-15) BUN (7-18) mg/dL Creatinine (0.55-1.02) mg/dL Est Cr Clr Drug Dosing mL/min Estimated GFR (MDRD) (>60) mL/min BUN/Creatinine Ratio (14-18) Glucose (74-106) mg/dL Lactic Acid 2.6 H (0.4-2.0) mmol/L Calcium (8.5-10.1) mg/dL Total Bilirubin (0.2-1.0) mg/dL AST (15-37) U/L ALT (14-59) U/L Alkaline Phosphatase (46-116) U/L Troponin I (0.00-0.056) ng/mL C-Reactive Protein (<1.0) mg/dL NT-Pro-B Natriuret Pep 3077 H (0-125) pg/mL Total Protein (6.4-8.2) g/dl Albumin (3.4-5.0) g/dl Globulin gm/dL Albumin/Globulin Ratio (1-2) Meds: Medications Generic Name Dose Route Start Last Admin Trade Name Jaseq PRN Reason Stop Dose Admin Sodium Chloride 1,000 mls @ 125 mls/hr 01/13/18 19:15 01/13/18 19:48 Normal Saline IV 125 mls/hr ASDIRECTED ESSENCE Administration Vancomycin HCl 1.5 gm/ Sodium 250 mls @ 250 mls/hr 01/13/18 22:04 Chloride IV 01/13/18 23:03 ONETIME ONE Sodium Chloride 10 ml 01/13/18 19:04 01/13/18 21:05 Saline Flush FLUSH 10 ml ASDIRECTED PRN Administration Keep Vein Open Discontinued Medications Generic Name Dose Route Start Last Admin Trade Name Freq PRN Reason Stop Dose Admin Albuterol/Ipratropium 3 ml 01/13/18 19:46 01/13/18 20:07 Duoneb 3.0-0.5 Mg/3 Ml NEB 01/13/18 19:47 3 ml ONETIME ONE Administration Hydromorphone HCl 0.5 mg 01/13/18 19:10 01/13/18 19:28 Dilaudid IVPUSH 01/13/18 19:11 0.5 mg ONETIME ONE Administration Hydromorphone HCl 0.5 mg 01/13/18 22:24 Dilaudid IVPUSH 01/13/18 22:25 ONETIME ONE Ceftriaxone Sodium 2 gm/ 100 mls @ 100 mls/hr 01/13/18 20:53 01/13/18 21:19 Sodium Chloride IV 01/13/18 21:52 100 mls/hr ONETIME ONE Administration Sodium Chloride 100 mls @ 4 mls/sec 01/13/18 21:03 01/13/18 21:05 Normal Saline IV 01/13/18 21:04 4 mls/sec ONETIME ONE Administration Iopamidol 100 ml 01/13/18 21:03 01/13/18 21:05 Isovue-370 (76%) IVPUSH 01/13/18 21:04 100 ml ONETIME ONE Administration Iopamidol 25 ml 01/13/18 21:03 01/13/18 21:05 Isovue-370 (76%) IVPUSH 01/13/18 21:04 25 ml ONETIME ONE Administration Ketorolac Tromethamine 30 mg 01/13/18 19:46 01/13/18 19:56 Toradol IVPUSH 01/13/18 19:47 30 mg ONETIME ONE Administration - Re-Assessments/Exams Free Text/Narrative Re-Assessment/Exam: 01/13/18 19:50 I ordered an IV NS at 125mL/hr, oxygen, ABG, dilaudid 0.5mg IV CT angio of her chest and abdomen with run off. I am worried about a clot in her lungs that may have come from her pelvis or abdomen. I also ordered tylenol, duoneb, labs and an EKG. 01/13/18 21:31 Her EKG shows a sinus tachycardia with no acute changes. Her WBC was normal. Her Hgb was a little low at 10.4. Her platelets were low at 155. Her D-dimer was elevated at 2.52. Her pH was elevated at 7.46. Her pCO2 is low at 30.3. Her pO2 is low at 65. Her lactic acid was elevated at 2.6. Her calcium was low at 7.4. Her Na is low at 135. Her K was low at 3.1. Her creatinine was normal at 0.9. Her AST was elevated at 278, ALT 379, and alk phos at 352. The CT of her chest shows small bilateral bordered pulmonary parenchymal nodules measure up to 7 mm i n the left upper lobe. Small patchy peripheral infiltrates in both upper lung zones many of which are associated with small peripheral airways suggesting parenchymal changes related to peripheral airway disease. No pulmonary emboli. No aneurysm or dissection. Moderate bilateral pleural effusions. The CT of her abdomen and pelvis with vascular run off shows free fluid in the cul-de-sac either physiologic or related to monimal ascites. Small amount of fluid surrounds the gallbladder. No gallbladder wall thickening or calculi. Normal CTA of the abdomen, pelvis and both legs. There is hepatomegaly. Her oxygen sats are about 88 to 89%. I tried her on some CPAP and that helped. Her troponin came back elevated at 0.902 and her BNP was elevated at 3077. Her CRP is elevated at 21.4. This patient is very sick she has hypoxia, pneumonia, pulmonary nodule, bilateral pleural effusions, nonSTEMI , CHF, sepsis, enlarged liver with elevated liver enzymes, fluid around her gallbladder and ovarian cyst. I am not sure how her back pain is associated with her respiratory problems and other problems. I did talk to the radiologist again and he could not see anything that would explain her pain other then a small cyst and some fluid in the cul-de-sac. She is having more pain so I ordered dilaudid 0.5mg IV. I talked with our hospitalist Dr French and she went to see the patient. There is many things going on with the patient and she would do better in [place]. I called [facility] in [place] and [facility] and both did not have beds. I called [facility] in [place] and talked with Dr Mason and he accepted the patient. She will be going by [facility] [place]. I did give her a shot of lovenox 60mg subcutaneous for the nonSTEMI. Departure - Departure Time of Disposition: 22:50 Disposition: DC/[facility]fer to [facility] 02 Clinical Impression: Hypoxia, Pulmonary nodule, Bilateral pleural effusion, Non-STEMI (non-ST elevated myocardial infarction), Hepatomegaly Sepsis Qualifiers: Sepsis type: sepsis due to unspecified organism Qualified Code(s): A41.9 - Sepsis, unspecified organism Pneumonia Qualifiers: Pneumonia type: due to unspecified organism Laterality: bilateral Lung location : lower lobe of lung Qualified Code(s): J18.1 - Lobar pneumonia, unspecified organism CHF (congestive heart failure) Qualifiers: Heart failure type: other Qualified Code(s): I50.9 - Heart failure, unspecified Ovarian cyst Qualifiers: Laterality: left Qualified Code(s): N83.202 - Unspecified ovarian cyst, left side Low back pain Qualifiers: Chronicity: acute Back pain laterality: bilateral Sciatica presence: with sciatica Sciatica laterality: bilateral sciatica Qualified Code(s): M54.42 - Lumbago with sciatica, left side - Discharge Information Referrals: Chiara Elliosn FARM MECHANIC APPRENTICE [Primary Care Provider] - Forms: ED Department Discharge - My Orders Last 24 Hours: My Active Orders 01/13/18 19:04 Cardiac Monitoring [RC] . DIRECTED Sodium Chloride 0.9% [Saline Flush] 10 ml FLUSH ASDIRECTED PRN Peripheral IV Insertion Adult [OM.PC] Stat 01/13/18 19:06 Peripheral IV Care [RC] . DIRECTED Ang Chest [CT] Stat 01/13/18 19:09 Ang Abdomen Aorta w Bi Runoff [CT] Stat 01/13/18 19:12 VL Duplex Lwr Ext Veins Ltd Lt [US] Stat 01/13/18 19:15 Sodium Chloride 0.9% [Normal Saline] 1,000 ml IV ASDIRECTED 01/13/18 19:46 RT Aerosol Therapy [RC] ASDIRECTED 01/13/18 21:26 BiPAP [RESPCARE] Routine 01/13/18 22:04 Vancomycin [Vancocin] 1.5 gm Sodium Chloride 0.9% [Normal Saline] 250 ml IV ONETIME - Assessment/Plan Last 24 Hours: My Active Orders 01/13/18 19:04 Cardiac Monitoring [RC] . DIRECTED Sodium Chloride 0.9% [Saline Flush] 10 ml FLUSH ASDIRECTED PRN Peripheral IV Insertion Adult [OM.PC] Stat 01/13/18 19:06 Peripheral IV Care [RC] . DIRECTED Ang Chest [CT] Stat 01/13/18 19:09 Ang Abdomen Aorta w Bi Runoff [CT] Stat 01/13/18 19:12 VL Duplex Lwr Ext Veins Ltd Lt [US] Stat 01/13/18 19:15 Sodium Chloride 0.9% [Normal Saline] 1,000 ml IV ASDIRECTED 01/13/18 19:46 RT Aerosol Therapy [RC] ASDIRECTED 01/13/18 21:26 BiPAP [RESPCARE] Routine 01/13/18 22:04 Vancomycin [Vancocin] 1.5 gm Sodium Chloride 0.9% [Normal Saline] 250 ml IV ONETIME
[2018-01-13] MEDS ORDERED: Albuterol/Ipratropium 3.0-0.5 MG/3 ML Neb Soln NEB ONE (19:46)
[2018-01-13] MEDS ORDERED: Ketorolac 30 MG/ML SDV IVPUSH ONE (19:46)
[2018-01-13] MEDS ORDERED: cefTRIAXone 2 GM in Sodium Chloride 0.9% 100 ML IV ONE (20:53)
[2018-01-13] MEDS ORDERED: Iopamidol 755 Mg/ML 100 ML Bottle IVPUSH ONE (21:03)
[2018-01-13] MEDS ORDERED: Sodium Chloride 0.9% 100 ML IV ONE (21:03)
[2018-01-13] MEDS ORDERED: Iopamidol 755 MG/ML 50 ML Bottle IVPUSH ONE (21:03)
[2018-01-13] MEDS ORDERED: Enoxaparin 60 MG/0.6 ML Syringe SUBCUT ONE (22:42)
--- NOTE | 2018-01-14 11:03 | CT ---
CT chest Technique: Multiple axial sections through the chest were obtained. Intravenous contrast was utilized. Study performed as a pulmonary angiogram protocol. Findings: Pulmonary arteries show no filling defects to indicate pulmonary embolism. Aorta appears within normal limits. Mediastinum and hilar regions show no adenopathy or mass. Small to moderate sized bilateral pleural effusions are seen. Areas of consolidation noted within both lung bases most likely representing atelectasis but difficult to exclude superimposed pneumonia. Several scattered pulmonary nodules noted within the right upper lung with largest nodule measuring 9 mm. Mild areas of increased density seen within both upper lungs possibly due to pulmonary vascular congestion or bronchitis. Impression: 1. Small to moderate sized bilateral pleural effusions. 2. Small nodules within the right upper lung with largest measuring 9 mm. Recommend noncontrast chest CT in 6 months to confirm stability. 3. Areas of atelectasis within both lungs. Difficult to exclude superimposed pneumonia if patient has infectious symptoms. Slight parenchymal density within both upper lungs most likely representing bronchitis or mild pulmonary vascular congestion. 4. No findings of pulmonary embolism. Diagnostic code #9 I agree with preliminary report issued by [facility] ([facility] report finalized on 01/13/18, 9:34 PM Central Time)
--- NOTE | 2018-01-14 11:03 | CT ---
CT aortic angiogram with runoff Technique: Multiple axial sections were obtained from above the dome of the diaphragm inferiorly through the abdomen and pelvis and through both lower extremities. Study performed as an angiogram protocol. Delayed images were then obtained through the abdomen and pelvis. Comparison: No previous abdominal or pelvic CT exam. Findings: Liver is slightly generous in size which is felt to be incidental. No focal abnormality is seen within the liver. Spleen appears within normal limits. Adrenal glands show no nodule. Pancreas is within normal limits. Kidneys show symmetric contrast enhancement. Aorta shows no aneurysm or stenosis. Single renal arteries are seen which show no stenosis. Superior mesenteric and celiac axis appears patent. Inferior mesenteric artery is patent. Common iliac arteries, external and internal iliac arteries are within normal limits. No retroperitoneal adenopathy or mesenteric abnormalities are seen. No pelvic mass or adenopathy is seen. There is free fluid being seen within the pelvis slightly more than physiologic. Small amount of fluid is also seen around the gallbladder. Bone window settings were reviewed which show mild degenerative change within the spine. Common femoral arteries, superficial femoral arteries and profunda arteries are patent on both sides. Popliteal arteries are patent on both sides. Three-vessel runoff identified on both sides. Impression: 1. Small amount of free fluid within the pelvis which is slightly more than physiologic but otherwise nonspecific. Small amount of fluid also noted around the gallbladder which is nonspecific. 2. Aorta and iliac arteries as well as lower extremity arteries show no occlusion or stenosis. Aortic branch vessels also show no stenosis or occlusion. 3. Liver is slightly prominent in size most likely incidental. Other normal findings as noted above. Diagnostic code #2 I agree with preliminary report issued by [employer] ([facility] report finalized on 01/13/18, 9:34 PM Central Time)
--- NOTE | 2018-01-14 11:03 | US ---
Left lower extremity deep venous ultrasound: Duplex and color flow imaging was obtained of the left common femoral, proximal greater saphenous, superficial femoral, popliteal, posterior tibial and peroneal veins. Right common femoral vein was also evaluated. Comparison: No prior venous imaging. Findings: Normal phasic flow, augmentation and compression are seen. Impression: 1. No evidence of deep venous thrombosis within the left lower extremity or within the right common femoral vein. Diagnostic code #1 I agree with preliminary report issued by [facility] ([facility] report finalized on 01/13/18, 10:41 PM Central Time)
== END 2018-01-13 23:10 ==
LOC: JD.ED 18:27
DX: A41.9 Sepsis, unspecified organism (principal); I21.4 Non-ST elevation (NSTEMI) myocardial infarction; J90 Pleural effusion, not elsewhere classified; R91.1 Solitary pulmonary nodule; R16.0 Hepatomegaly, not elsewhere classified; J18.9 Pneumonia, unspecified organism; I50.9 Heart failure, unspecified; N83.202 Unspecified ovarian cyst, left side; F41.9 Anxiety disorder, unspecified; F32.9 Major depressive disorder, single episode, unspecified; M54.42 Lumbago with sciatica, left side; Z88.5 Allergy status to narcotic agent; Z79.899 Other long term (current) drug therapy
CPT/HCPCS: 36415; 36600; 71275; 75635; 80053; 82803; 83605; 83880; 84484; 85025; 85379; 85610; 85730; 86140; 87040; 93005; 93971; 94640; 96361; 96365; 96367; 96372; 96375; 96376; 99285; J0696; J1170; J1650; J1885; J3370; J7030; J7040; J7050; Q9967; 87077; 87186; 93010; J7620-GY

== ENCOUNTER 2019-05-20 06:12 | Day surgery (SDC) | payer BC ==
[~2019-05-20 06:12] MED LIST: Lactated Ringers 1,000 ML IV SCH; Lidocaine 1%/Sod Bicarbonate in NS 8.4% 1 ML Syringe IDERM PRN; Sodium Chloride 0.9% 10 ML Syringe FLUSH PRN
[2019-05-20] MEDS ORDERED: Ketorolac 30 MG/ML SDV ONE (06:37)
[2019-05-20] MEDS ORDERED: ceFAZolin 1 GM Vial ONE (06:37)
[2019-05-20] MEDS ORDERED: Ondansetron 4 MG/2 ML SDV ONE (06:37)
[2019-05-20] MEDS ORDERED: Rocuronium 100 MG/10 ML MDV ONE (06:37)
[2019-05-20] MEDS ORDERED: Propofol 200 MG/20 ML SDV ONE (06:37)
[2019-05-20] MEDS ORDERED: Lidocaine 1% 6 ML ONE (06:37)
[2019-05-20] MEDS ORDERED: HYDROmorphone 0.5 MG/0.5 ML Syringe ONE (06:37)
[2019-05-20] MEDS ORDERED: Lactated Ringers 1,000 ML ONE ×2 (06:37→07:41)
[2019-05-20] MEDS ORDERED: Dexamethasone 4 MG/ML 5 ML MDV ONE (06:37)
[2019-05-20] MEDS ORDERED: Midazolam 1 MG/ML 2 ML SDV ONE (06:38)
[2019-05-20] MEDS ORDERED: fentaNYL 250 MCG/5 ML SDV ONE (06:39)
--- NOTE | 2019-05-20 06:56 | PCM.PREANE ---
Preanesthetic Assessment - Anesthesia/Transfusion/Family Hx Anesthesia History: Prior Anesthesia Without Reaction Family History of Anesthesia Reaction: No Transfusion History: No Prior Transfusion(s) Intubation History: Unknown - Review of Systems General: No Symptoms Pulmonary: No Symptoms (ETOH: occasionally) Cardiovascular: No Symptoms Gastrointestinal: No Symptoms Neurological: No Symptoms ( history of back pain-history of L5 vertebral infection ), Headache (Migraines: currently rated 2/10) Other: Reports: None, Depression - Physical Assessment NPO Status Date: 05/19/19 NPO Status Time: 20:00 Vital Signs: Last Vital Signs Temp 36.7 C 05/20/19 06:20 Pulse 72 05/20/19 06:20 Resp 16 05/20/19 06:20 BP 123/76 05/20/19 06:20 Pulse Ox 99 05/20/19 06:20 Height: 1.68 m Weight: 61.235 kg ASA Class: 2 Mental Status: Alert & Oriented x3 Airway Class: Mallampati = 2 Dentition: Reports: Normal Dentition, Caries Thyro-Mental Finger Breadths: 3 Mouth Opening Finger Breadths: 3 ROM/Head Extension: Full Lungs: Clear to Auscultation, Normal Respiratory Effort Cardiovascular: Regular Rate, Regular Rhythm, No Murmurs - Lab Values: Laboratory Last Values Urine HCG, Qual Negative (NEGATIVE) 05/20/19 06:21 All labs reviewed and noted and within acceptable ranges to proceed with procedure. - Imaging/EKG Impressions: EK Sinus tachycardia [id number] - Allergies Allergies/Adverse Reactions: Allergies Allergy/AdvReac Type Severity Reaction Status Date / Time morphine AdvReac Hallucinati Verified 05/19/19 15:51 ons - Anesthesia Plan Pre-Op Medication Ordered: None - Acknowledgements Anesthesia Type Planned: General Anesthesia Pt an Appropriate Candidate for the Planned Anesthesia: Yes Alternatives and Risks of Anesthesia Discussed w Pt/Guardian: Yes Pt/Guardian Understands and Agrees with Anesthesia Plan: Yes PreAnesthesia Questionnaire HEENT History: Reports: Impaired Vision, Otitis Media Other HEENT History: TMJ Cardiovascular History: Reports: None Respiratory History: Reports: None Gastrointestinal History: Reports: None Genitourinary History: Reports: None [employer] History: Reports: Other OB/BYN History: ovarian cyst, , female pelvic pain, breast cyst Musculoskeletal History: Reports: Back Pain, Chronic, Other (See Below) Other Musculoskeletal History: back pain, osteomyelitis, L5 verterbral infection Neurological History: Reports: Migraines Psychiatric History: Reports: Anxiety, Depression Endocrine/Metabolic History: Reports: None Hematologic History: Reports: Anemia, Iron Deficiency Immunologic History: Reports: None Oncologic (Cancer) History: Reports: None Dermatologic History: Reports: None - Infectious Disease History Infectious Disease History: Reports: Chicken Pox - Past Surgical History Head Surgeries/Procedures: Reports: None HEENT Surgical History: Reports: LASIK Cardiovascular Surgical History: Reports: None Respiratory Surgical History: Reports: None GI Surgical History: Reports: None Female Surgical History: Reports: Section, Cervical Cryotherapy Endocrine Surgical History: Reports: None Oncologic Surgical History: Reports: None Dermatological Surgical History: Reports: None - SUBSTANCE USE Smoking Status *Q: Never Smoker Recreational Drug Use History: No - HOME MEDS Home Medications: Home Meds SUMAtriptan Succinate [Imitrex] 50 mg PO DAILY PRN 01/08/18 [History] Sertraline [Zoloft] 50 mg PO DAILY 01/08/18 [History] Ferrous Sulfate [Iron] 1 tab PO DAILY 01/13/18 [History] Cholecalciferol (Vitamin D3) [Vitamin D3] 1,000 unit PO DAILY 05/19/19 [History] Magnesium 250 mg PO DAILY 05/19/19 [History] - CURRENT (IN HOUSE) MEDS Current Meds: Current Medications Lactated Ringer's (Ringers, Lactated) 1,000 mls @ 125 mls/hr IV ASDIRECTED ESSENCE Stop: 05/20/19 23:00 Lidocaine/Sodium Bicarbonate (Buffered Lidocaine 1% In Ns 8.4%) 0.25 ml IDERM ONETIME PRN PRN Reason: Prior to IV Start Stop: 05/20/19 18:00 Sodium Chloride (Saline Flush) 10 ml FLUSH ASDIRECTED PRN PRN Reason: Keep Vein Open Stop: 05/20/19 18:00 Discontinued Medications Cefazolin Sodium (Ancef) Confirm Administered Dose 2 gm .ROUTE .STK-MED ONE Stop: 05/20/19 06:38 Dexamethasone (Dexamethasone) Confirm Administered Dose 20 mg .ROUTE .STK-MED ONE Stop: 05/20/19 06:38 Fentanyl (Sublimaze) Confirm Administered Dose 250 mcg .ROUTE .STK-MED ONE Stop: 05/20/19 06:40 Hydromorphone HCl (Dilaudid) Confirm Administered Dose 0.5 mg .ROUTE .STK-MED ONE Stop: 05/20/19 06:38 Lidocaine HCl (Xylocaine-Mpf 1%) Confirm Administered Dose 6 mls @ as directed .ROUTE .STK-MED ONE Stop: 05/20/19 06:38 Lactated Ringer's (Ringers, Lactated) Confirm Administered Dose 1,000 mls @ as directed .ROUTE .STK-MED ONE Stop: 05/20/19 06:38 Ketorolac Tromethamine (Toradol) Confirm Administered Dose 30 mg .ROUTE .STK- MED ONE Stop: 05/20/19 06:38 Lidocaine/Epinephrine (Xylocaine 1% With Epinephrine 1:100,000) Confirm Administered Dose 20 ml .ROUTE .STK-MED ONE Stop: 05/20/19 06:44 Midazolam HCl (Versed 1 Mg/Ml) Confirm Administered Dose 2 mg .ROUTE .STK-MED ONE Stop: 05/20/19 06:39 Ondansetron HCl (Zofran) Confirm Administered Dose 4 mg .ROUTE .STK-MED ONE Stop: 05/20/19 06:38 Propofol (Diprivan 20 Ml) Confirm Administered Dose 200 mg .ROUTE .STK-MED ONE Stop: 05/20/19 06:38 Rocuronium [place] (Zemuron) Confirm Administered Dose 100 mg .ROUTE .STK-MED ONE Stop: 05/20/19 06:38 Sodium Chloride (Normal Saline) Confirm Administered Dose 50 ml .ROUTE .STK-MED ONE Stop: 05/20/19 06:44
[2019-05-20] MEDS: Sodium Chloride 0.9% 50 ML SDV ONE ×2 (07:48→07:55)
[2019-05-20] MEDS: Lidocaine 1% with EPINEPHrine 1:100,000 20 ML MDV ONE ×2 (07:48→07:54)
[2019-05-20] MEDS ORDERED: ePHEDrine 50 MG/ML SDV IVPUSH PRN (07:51)
[2019-05-20] MEDS ORDERED: Ondansetron 4 MG/2 ML SDV IVPUSH PRN ×3 (07:51→10:06)
[2019-05-20] MEDS ORDERED: fentaNYL 100 MCG/2 ML SDV IVPUSH PRN (07:51)
[2019-05-20] MEDS ORDERED: Haloperidol Lactate 5 MG/ML SDV IVPUSH ONE (07:51)
[2019-05-20] MEDS ORDERED: diphenhydrAMINE 50 MG/ML SDV IVPUSH PRN (07:51)
[2019-05-20] MEDS ORDERED: HYDROmorphone 0.5 MG/0.5 ML Syringe IVPUSH PRN (07:51)
[2019-05-20] MEDS ORDERED: Phenylephrine 1 MG in Sodium Chloride 0.9% 10 ML IV SCH (08:00)
[2019-05-20] MEDS ORDERED: Neostigmine Methylsulfate 1 MG/ML 5 ML Syringe ONE (08:13)
[2019-05-20] MEDS ORDERED: Acetaminophen/oxyCODONE 325-5 MG Tab PO PRN ×2 (08:50→10:06)
--- NOTE | 2019-05-20 08:55 | PCM.OPNOTE ---
- General Post-Op/Procedure Note Date of Surgery/Procedure: 05/20/19 Operative Procedure(s): Total vaginal hysterectomy with bilateral salpingectomy Findings: Ovaries appeared normal uterus was normal in appearance. The patient had some scarring on the right side of her uterus involving the ovary and fallopian tube. Pre Op Diagnosis: 1. Menorrhagia. 2. Dysmenorrhea Post-Op Diagnosis: Same Anesthesia Technique: General ET Tube Other Anesthesia Type: Lidocaine quarter percent with [id number] mLlocal Primary Surgeon: Richie Higgins Secondary Surgeon: Eloy Osman Anesthesia Provider: Violeta Marcos Battery Starter: Mary Lou Segal Reason Battery Starter Was Necessary: Retraction, assistance, patient safety, quality of care Pathology: Uterus and bilateral fallopian tubes Fluid Replacement, Intraop: 1,300 Output, Urine Amount: 190 EBL in mLs: 150 Complications: None Condition: Good Free Text/Narrative:: Intake & Output 05/19/19 05/20/19 05/20/19 22:59 06:59 14:59 Output Total 190 Balance -190 Surgery duration: 47 minutes Procedure: The patient was placed in supine position on the operating table. General endotracheal anesthesia was accomplished. After positioning, and adequate prep and drape, the procedure was then performed. Sterile speculum was placed in the vagina and cervix was visualized. Cervix was injected with lidocaine quarter percent with epinephrine-20 mL used. A full circumference incision was made in the cervical epithelium. The bladder was pushed well back off cervix. Posterior cul-de-sac was then entered sharply without problems. Left uterosacral was crossclamped with a Enseal vessel closure system. The left uterosacral and then the right uterosacral ligament pedicles were developed using the Enseal system. The anterior cul-de-sac was then entered without problems and the uterine vasculature, cardinal ligament and broad ligament then developed using Enseal vessel closure system. The uterus was inverted at this time and upper broad ligament fallopian tube pedicles were crossclamped and developed with the Enseal vessel closure system. Specimen was totally removed. Left and right fallopian tube was normal in appearance.. Using Enseal vessel closure system each of the tubes was then removed and sent with the specimen. The patient was found to be hemostatically intact at this time. Vaginal cuff was sutured for hemostatic reasons with a running locked suture of 0 Monocryl from the 2 o'clock position to the 10 o'clock position posteriorly. Vaginal cuff was then closed from right to left side with a running locked suture of 0 Monocryl. Patient was returned to supine position and awakened from general endotracheal anesthesia. She tolerated the procedure and left the operating room in satisfactory condition.
--- NOTE | 2019-05-20 09:03 | PCM.POSTAN ---
POST ANESTHESIA ASSESSMENT - MENTAL STATUS Mental Status: Alert - VITAL SIGNS Vital Signs: Last Vital Signs Temp 36.9 C 05/20/19 08:50 Pulse 72 05/20/19 08:50 Resp 14 05/20/19 08:50 BP 127/70 05/20/19 08:50 Pulse Ox 100 05/20/19 08:50 - RESPIRATORY Respiratory Status: Respiratory Rate WNL, Airway Patent, O2 Saturation Stable, Supplemental Oxygen - CARDIOVASCULAR CV Status: Pulse Rate WNL, Blood Pressure Stable - GASTROINTESTINAL GI Status: No Symptoms - POST OP HYDRATION Hydration Status: Adequate & Stable
--- NOTE | 2019-05-20 09:03 | PCM48HPAN ---
Post Anesthesia Note - EVALUATION WITHIN 48HRS OF ANESTHETIC Vital Signs in Normal Range: Yes Patient Participated in Evaluation: Yes Respiratory Function Stable: Yes Airway Patent: Yes Cardiovascular Function Stable: Yes Hydration Status Stable: Yes Pain Control Satisfactory: Yes Nausea and Vomiting Control Satisfactory: Yes Mental Status Recovered: Yes Vital Signs: Last Vital Signs Temp 36.9 C 05/20/19 09:00 Pulse 65 05/20/19 09:00 Resp 10 L 05/20/19 09:00 BP 128/74 05/20/19 09:00 Pulse Ox 100 05/20/19 09:03
[2019-05-20] MEDS ORDERED: Ibuprofen 600 MG Tab PO PRN ×2 (10:06→18:45)
[2019-05-20 10:09] VITALS: BP 120/66; PULSE 68
--- NOTE | 2019-05-20 10:11 | PCM.OPNOTE ---
- General Post-Op/Procedure Note Date of Surgery/Procedure: 05/20/19 Operative Procedure(s): Total vaginal hysterectomy with bilateral salpingectomy Findings: Uterus upper limits normal size. Ovaries and fallopian tubes appeared normal. Pre Op Diagnosis: 1. Irregular uterine bleeding. 2. Endometrial polyps Post-Op Diagnosis: Same Anesthesia Technique: General ET Tube Other Anesthesia Type: Lidocaine quarter percent with [id number] mL total local Primary Surgeon: Richie Higgins Secondary Surgeon: Eloy Osman Anesthesia Provider: Jhoan De La Cruz Manager Programming: Mary Lou Segal Reason Manager Programming Was Necessary: Retraction, assistance, patient's safety, quality of care. Fluid Replacement, Intraop: 1,500 EBL in mLs: 25 Complications: None Condition: Good Free Text/Narrative:: Intake & Output 05/19/19 05/20/19 05/20/19 22:59 06:59 14:59 Intake Total 1550 Output Total 380 Balance 1170 Surgery duration: 35 minutes Procedure: The patient was placed in supine position on the operating table. General endotracheal anesthesia was accomplished. After positioning, and adequate prep and drape, the procedure was then performed. Sterile speculum was placed in the vagina and cervix was visualized. Cervix was injected with lidocaine quarter percent with epinephrine-20 mL used. A full circumference incision was made in the cervical epithelium. The bladder was pushed well back off cervix. Posterior cul-de-sac was then entered sharply without problems. Left uterosacral was crossclamped with a Enseal vessel closure system. The left uterosacral and then the right uterosacral ligament pedicles were developed using the Enseal system. The anterior cul-de-sac was then entered without problems and the uterine vasculature, cardinal ligament and broad ligament then developed using Enseal vessel closure system. The uterus was inverted at this time and upper broad ligament fallopian tube pedicles were crossclamped with Earl clamps. Specimen was totally removed. both these pedicles were secured with the Enseal vessel closure system. Ovaries were left in place per patient desire. Left and right fallopian tube was normal in appearance.. Using Enseal vessel closure system each of the tubes was then removed and sent with the specimen. The patient was found to be hemostatically intact at this time. Vaginal cuff was sutured for hemostatic reasons with a running locked suture of 0 Monocryl from the 2 o'clock position to the 10 o'clock position posteriorly. Vaginal cuff was then closed from right to left side with a running locked suture of 0 Monocryl. Patient was returned to supine position and awakened from general endotracheal anesthesia. She tolerated the procedure and left the operating room in satisfactory condition.
[2019-05-20] MEDS ORDERED: Ketorolac 30 MG/ML SDV IVPUSH SCH ×2 (10:15→12:45)
== END 2019-05-20 10:30 | disposition home or self-care (01) ==
LOC: JD.SDS 06:12
PROVIDERS: ATTEND Obstetrics & Gynecology
DX: N88.8 Other specified noninflammatory disorders of cervix uteri (principal); N83.8 Other noninflammatory disorders of ovary, fallopian tube and broad ligament; N81.10 Cystocele, unspecified; N81.6 Rectocele; N39.3 Stress incontinence (female) (male); F32.9 Major depressive disorder, single episode, unspecified; F41.9 Anxiety disorder, unspecified; G43.909 Migraine, unspecified, not intractable, without status migrainosus; Z79.899 Other long term (current) drug therapy
CPT/HCPCS: 36415; 58262; 81025; 86850; 86900; 86901; A9270; J0690; J1100; J1170; J1885; J2001; J2250; J2405; J2704; J2710; J3010; J7120; 00944

== ENCOUNTER 2020-06-11 16:28 | Emergency (ER) | payer BC ==
[2020-06-11 16:38] VITALS: PULSE 60
--- NOTE | 2020-06-11 16:55 | EDM.PDOC ---
<Leida Ragsdale - Last Filed: 06/11/20 16:57> ED HPI GENERAL MEDICAL PROBLEM - General Chief Complaint: Laceration Stated Complaint: LT POINTER FINGER LAC Time Seen by Provider: 06/11/20 16:38 Source of Information: Reports: Patient History Limitations: Reports: No Limitations - History of Present Illness INITIAL COMMENTS - FREE TEXT/NARRATIVE: Nayeli is a 50 year old female presenting to the ED today with a laceration to the tip of her index finger. She says she was cutting a bag open about 20 minutes with a pearing knife and it slipped. She states she wanted to "tear off the flap" but decided it was better to be evaluated. She rates the pain 2/10 and is currently throbbing. The laceration is approximately 1cm by 0.5 cm with no bone exposed. Patient is unaware of last Tetanus shot. - Related Data Allergies Allergy/AdvReac Type Severity Reaction Status Date / Time morphine AdvReac Hallucinati Verified 06/11/20 16:38 ons Home Meds: Home Meds Sertraline [Zoloft] 50 mg PO DAILY 01/08/18 [History] Past Medical History HEENT History: Reports: Impaired Vision, Otitis Media Other HEENT History: TMJ Cardiovascular History: Reports: None Respiratory History: Reports: None Gastrointestinal History: Reports: None Genitourinary History: Reports: None [employer] History: Reports: Other [employer] History: ovarian cyst, , female pelvic pain, breast cyst Musculoskeletal History: Reports: Other (See Below) Other Musculoskeletal History: back pain Neurological History: Reports: Migraines Psychiatric History: Reports: Anxiety, Depression Endocrine/Metabolic History: Reports: None Hematologic History: Reports: Iron Deficiency Immunologic History: Reports: None Oncologic (Cancer) History: Reports: None Dermatologic History: Reports: None - Infectious Disease History Infectious Disease History: Reports: Chicken Pox - Past Surgical History Head Surgeries/Procedures: Reports: None HEENT Surgical History: Reports: LASIK Cardiovascular Surgical History: Reports: None Respiratory Surgical History: Reports: None GI Surgical History: Reports: None Female Surgical History: Reports: Section Endocrine Surgical History: Reports: None Oncologic Surgical History: Reports: None Dermatological Surgical History: Reports: None Social & Family History - Family History Family Medical History: No Pertinent Family History - Tobacco Use Tobacco Use Status *Q: Never Tobacco User - Caffeine Use Caffeine Use: Reports: Coffee, Soda Other Caffeine Use: 2 cups/coffee, 1 soda - Recreational Drug Use Recreational Drug Use: No - Living Situation & Occupation Living situation: Reports: , with Spouse, with Family (2 kids) 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 ED EXAM, SKIN/RASH Exam: See Below Exam Limited By: No Limitations General Appearance: Alert, WD/WN, No Apparent Distress Head: Atraumatic, Normocephalic Neck: Normal Inspection, Supple, Non-Tender, Full Range of Motion Respiratory/Chest: No Respiratory Distress, Lungs Clear, Normal Breath Sounds, No Accessory Muscle Use, Chest Non-Tender Cardiovascular: Normal Peripheral Pulses, Regular Rate, Rhythm, No Edema, No Gallop, No JVD, No Murmur, No Rub GI/Abdominal: Normal Bowel Sounds, Soft, Non-Tender, No Organomegaly, No Distention, No Abnormal Bruit, No Mass Extremities: Normal Range of Motion, Non-Tender, No Pedal Edema, Normal Capillary Refill, Other (Left index finger laceration ) Neurological: Alert, Oriented, CN II-XII Intact, Normal Cognition, Normal Gait, Normal Reflexes, No Motor/Sensory Deficits Psychiatric: Normal Affect, Normal Mood Skin: Warm, Dry, Normal Color, No Rash Lymphatic: No Adenopathy ED SKIN PROCEDURES - Laceration/Wound Repair Left Midline Distal Digit - 2nd (Index) Appearance: Superficial Course - Re-Assessments/Exams Free Text/Narrative Re-Assessment/Exam: 06/11/20 17:00 Flap laceration appears to be superficial but will need sutures for closure. Patient agrees with laceration closure. Departure - Departure Disposition: Home, Self-Care 01 Clinical Impression: Laceration of left index finger Qualifiers: Encounter type: initial encounter Damage to nail status: without damage Foreign body presence: without foreign body Qualified Code(s): S61.211A - Laceration without foreign body of left index finger without damage to nail, initial encounter - Discharge Information Referrals: Chiara Ellison INVESTMENT CONSULTANT [Primary Care Provider] - Forms: ED Department Discharge Additional Instructions: Soak your finger in warm soapy water 2 times per day and apply antibiotic ointment after. Have the sutures removed in 1 week. Look for any signs of infection such as redness, swelling, pain, or drainage. If you see any of these signs, see your doctor or return. You may need oral antibiotics. Sepsis Event Note (ED) - Evaluation Sepsis Screening Result: No Definite Risk <Joel Horner - Last Filed: 06/11/20 17:37> ED HPI GENERAL MEDICAL PROBLEM - History of Present Illness Onset: Sudden Duration: Minutes: Location: Reports: Upper Extremity, Left (Index finger) Severity: Mild Improves with: Reports: None Worsens with: Reports: None Associated Symptoms: Reports: No Other Symptoms ED ROS GENERAL - Review of Systems Review Of Systems: See Below ED EXAM, SKIN/RASH Extremities: Other ED SKIN PROCEDURES - Laceration/Wound Repair Left Digit - 2nd (Index) Appearance: Superficial, Other (flap) Anesthetic Type: Digital Local Anesthesia - Lidocaine (Xylocaine): 1% Plain Skin Prep: Saline Exploration/Debridement/Repair: Wound Explored, In a Bloodless Field, Explored to Base Closed with: Sutures Lac/Wound length In cm: 1 Suture Size: 5-0 # of Sutures: 3 Tetanus Status Addressed: Yes Complications: No Course - Vital Signs Last Recorded V/S: Last Vital Signs Temp 97.8 F 06/11/20 16:36 Pulse 60 06/11/20 16:36 Resp 16 06/11/20 16:36 BP Pulse Ox 95 06/11/20 16:36 - Orders/Labs/Meds Orders: Active Orders 24 hr Category Date Time Status Vaccines to be Administered [RC] PER UNIT ROUTINE Care 06/11/20 16:57 Active Meds: Medications Discontinued Medications Generic Name Dose Route Start Last Admin Trade Name Dangelo PRN Reason Stop Dose Admin Diphtheria/Tetanus/Acell Pertussis 0.5 ml 06/11/20 16:57 Boostrix IM 06/11/20 16:58 .ONCE ONE Lidocaine HCl 10 ml 06/11/20 16:56 Xylocaine 1% INJECT 06/11/20 16:57 ONETIME ONE - Re-Assessments/Exams Free Text/Narrative Re-Assessment/Exam: 06/11/20 17:33 I examined the patient myself and I agree with Leida's assessment and plan. She sutured the finger. I will discharge her home. Departure - Departure Time of Disposition: 17:35 Condition: Good - Discharge Information *PRESCRIPTION DRUG MONITORING PROGRAM REVIEWED*: Not Applicable *COPY OF PRESCRIPTION DRUG MONITORING REPORT IN PATIENT JAZMIN: Not Applicable Sepsis Event Note (ED) - Focused Exam Vital Signs: Vital Signs Temp Pulse Resp Pulse Ox 06/11/20 16:36 97.8 F 60 16 95 - My Orders Last 24 Hours: My Active Orders 06/11/20 16:57 Vaccines to be Administered [RC] PER UNIT ROUTINE - Assessment/Plan Last 24 Hours: My Active Orders 06/11/20 16:57 Vaccines to be Administered [RC] PER UNIT ROUTINE
[2020-06-11] MEDS ORDERED: Lidocaine 1% 10 ML MDV INJECT ONE (16:56)
[2020-06-11] MEDS ORDERED: Diphtheria,Pertussis(Acell),Tetanus Vaccine 0.5 ML Syringe IM ONE (16:57)
== END 2020-06-11 17:50 | disposition home or self-care (01) ==
LOC: JD.ED 16:28
DX: S61.211A Laceration without foreign body of left index finger without damage to nail, initial encounter (principal); Z88.5 Allergy status to narcotic agent; Z79.899 Other long term (current) drug therapy; Z23 Encounter for immunization; W26.0XXA Contact with knife, initial encounter
CPT/HCPCS: 12001; 90471; 90715; 99282; J2001

== ENCOUNTER 2023-09-30 21:02 | Inpatient (IN) | payer BC ==
[2023-09-30] MEDS ORDERED: Naloxone 0.4 MG/ML SDV IVPUSH PRN (21:34)
[2023-09-30] MEDS: fentaNYL 100 MCG/2 ML SDV IVPUSH ONE (21:40)
[2023-09-30] MEDS: Ondansetron 4 MG/2 ML SDV IVPUSH ONE (21:41)
[2023-09-30] MEDS: Sodium Chloride 0.9% 10 ML Syringe FLUSH PRN (21:41)
[2023-09-30] MEDS: Lactated Ringers 1,000 ML IV SCH (22:00)
[2023-09-30] MEDS ORDERED: Ondansetron 4 MG Tab.DIS PO PRN (22:03)
[2023-09-30] MEDS ORDERED: Acetaminophen 325 MG Tab PO PRN (22:03)
[2023-09-30 22:04] LABS: BASOPHILS ABSOLUTE AUTO 0.1 K/mm3 (0.0-0.2); BASOPHILS PERCENT AUTO 0.3 % (0.0-1.0); EOSINOPHILS PERCENT AUTO 0.2 % (0.0-6.0); HEMATOCRIT 40.3 % (37.0-47.0); HEMOGLOBIN 13.8 gm/dl (12.0-16.0); IMMATURE GRAN ABSOLUTE AUTO 0.06 K/mm3 (0.00-0.05); IMMATURE GRAN PERCENT AUTO 0.4 % (0.0-0.4); LYMPHOCYTES ABSOLUTE AUTO 2.1 K/mm3 (1.0-4.8); MEAN CORPUSCULAR HEMOGLOBIN 30.9 pg (28.0-32.0); MEAN CORPUSCULAR HGB CONC 34.2 g/dl (32.0-36.0); MEAN CORPUSCULAR VOLUME 90.4 fl (83.0-99.0); MEAN PLATELET VOLUME 11.7 fl (9.4-12.3); MONOCYTES ABSOLUTE AUTO 0.8 K/mm3 (0.0-0.8); MONOCYTES PERCENT AUTO 4.8 % (0.0-8.0); NEUTROPHILS PERCENT AUTO 81.3 % (41.0-71.0); PLATELET COUNT,PLT 183 K/mm3 (150-400); RED BLOOD CELL COUNT 4.46 M/mm3 (4.10-5.30); WHITE BLOOD CELL COUNT,WBC 15.93 K/mm3 (3.9-11.3)
[2023-09-30 22:24] LABS: A/G RATIO 1.3 (1-2); ALBUMIN 4.2 g/dl (3.4-5.0); ANION GAP 16.6 (5-15); BILIRUBIN TOTAL 0.4 mg/dL (0.2-1.0); BUN/CREATININE RATIO 11.4 (14-18); C-REACTIVE PROTEIN 0.08 mg/dL (<0.30); CREATININE 0.7 mg/dL (0.55-1.02); EST CRCL DRUG DOSING (CG) 89.01 mL/min; POTASSIUM,K 3.6 mEq/L (3.5-5.1); PROTEIN TOTAL,TP 7.4 g/dl (6.4-8.2)
[2023-10-01 04:52] LABS: HEMOGLOBIN 12.5 gm/dl (12.0-16.0); MEAN CORPUSCULAR HEMOGLOBIN 30.3 pg (28.0-32.0); MEAN CORPUSCULAR HGB CONC 33.8 g/dl (32.0-36.0); MEAN CORPUSCULAR VOLUME 89.6 fl (83.0-99.0); PLATELET COUNT,PLT 169 K/mm3 (150-400); RED BLOOD CELL COUNT 4.13 M/mm3 (4.10-5.30); WHITE BLOOD CELL COUNT,WBC 10.72 K/mm3 (3.9-11.3)
[2023-10-01] MEDS: Lactated Ringers 1,000 ML IV SCH (05:16)
[2023-10-01] MEDS: Lactated Ringers 1,000 ML ONE (05:17)
[2023-10-01] MEDS: Ibuprofen 400 MG Tab PO PRN (05:20)
[2023-10-01 05:28] LABS: ANION GAP 14.7 (5-15); BUN/CREATININE RATIO 11.4 (14-18); CALCIUM 8.3 mg/dL (8.5-10.1); CREATININE 0.7 mg/dL (0.55-1.02); EST CRCL DRUG DOSING (CG) 89.01 mL/min; POTASSIUM,K 3.7 mEq/L (3.5-5.1)
[2023-10-01] MEDS ORDERED: Lactated Ringers 1,000 ML IV SCH (07:00)
[2023-10-01] MEDS: Sertraline 50 MG Tab PO SCH (09:34)
[2023-10-01 14:24] VITALS: BP 127/62; PULSE 65
== END 2023-10-01 13:12 | disposition home or self-care (01) | DRG 247 ==
LOC: JD.ED 21:02 → JD.MS 22:03
PROVIDERS: ADMIT Surgery; ATTEND Surgery
DX: K56.2 Volvulus (principal); K56.609 Unspecified intestinal obstruction, unspecified as to partial versus complete obstruction; F41.9 Anxiety disorder, unspecified; F32.A Depression, unspecified; G43.909 Migraine, unspecified, not intractable, without status migrainosus; D72.829 Elevated white blood cell count, unspecified; K59.00 Constipation, unspecified; Z88.5 Allergy status to narcotic agent; Z90.710 Acquired absence of both cervix and uterus; Z79.899 Other long term (current) drug therapy
CPT/HCPCS: 36415; 80048; 80053; 83605; 85025; 85027; 86140; A9270-GY; J2405; J3010; J3490; J7120